=== PATIENT | female | born 1975 | race Caucasian/White ===

== ENCOUNTER 2019-10-12 23:05 | Emergency (ER) | payer OTHER ==
[~2019-10-12] VITALS: Ht 162.6 cm; Wt 78.5 kg
--- NOTE | 2019-10-12 23:23 | NUR ---
PT PRESENTED TO THE ER WITH A C/O PAIN WITH URINATION. URINE SAMPLE OBTAINED. PT AMBULATED TO ER 16.
--- NOTE | 2019-10-12 23:29 | NUR ---
PT IS SLOVEN[place] SPEAKING ONLY. PT STATED THAT THE PAIN WITH URINATION STARTED TODAY. PT STATED THAT SHE NOTICED A LITTLE BLOOD IN HER URINE. PT HAS HAD "VAGINAL INFECTIONS IN THE PAST, BUT THIS IS DIFFERENT". PT STATED THAT SHE HAS BEEN EXPERIENCING PAIN S/P URINATION.
[2019-10-12 23:49] LABS: APPEARANCE,URINE Slightly Cloudy (CLEAR); BILIRUBIN,URINE Negative (NEGATIVE); BLOOD, URINE Large Ery/uL (NEGATIVE); COLOR,URINE Yellow (YELLOW); KETONES,URINE Negative (NEGATIVE); LEUKOCYTE ESTERASE ,URINE Large (NEGATIVE); NITRITE, URINE Positive (NEGATIVE); PH,URINE 8.5 (5.0-8.0); PROTEIN,URINE 100 mg/dl (NEGATIVE); UGLUCOSE Negative (NEGATIVE); UROBILINOGEN,URINE 0.2 EU/dL (0.2)
[2019-10-13] MEDS ORDERED: CEFTRIAXONE 1 G VIAL IM ONE (00:30)
[2019-10-13] MEDS ORDERED: LIDOCAINE /MPF 1% VIAL 5 ML VIAL ONE (00:30)
[2019-10-13] MEDS ORDERED: KETOROLAC TROMETHAMINE INJ 60 MG/2 ML VIAL IM ONE ×2 (00:30)
[2019-10-13] MEDS ORDERED: CEFTRIAXONE 1 G VIAL ONE (00:31)
[2019-10-13 00:35] LABS: BACTERIA,URINE Few /HPF (None Seen); RBC,URINE TOO NUMEROUS TO COUN /HPF (0-2); SQUAMOUS EPITHELIAL CELL,UR Few /HPF (None Seen); WBC,URINE TOO NUMEROUS TO COUN /HPF (0-3)
--- NOTE | 2019-10-13 00:37 | NUR ---
PT AMBULATED TO THE BATHROOM WITH A STEADY GAIT. PT TO REC'D MEDICATION WHEN SHE RETURNS.
--- NOTE | 2019-10-13 00:56 | NUR ---
Patient discharged to home in stable condition. Written and verbal after care instructions given. Patient verbalizes understanding of instruction AND RX. PT AMBULATED OUT WITH A STEADY GAIT. VSS. NAD NOTED. SHELLIE BISWAS AT THE BEDSIDE FOR TRANSLATION
[2019-10-13 00:58] VITALS: BP 110/72
== END 2019-10-13 00:58 | disposition home or self-care (01) ==
LOC: ER 23:05
DX: N39.0 Urinary tract infection, site not specified (principal); I10 Essential (primary) hypertension; F41.9 Anxiety disorder, unspecified; Z88.5 Allergy status to narcotic agent
CPT/HCPCS: 81001; 84703; 87077; 87086; 87186; 96372 ×2; 99284; J0696; J1885; J3490; 81000-TC

== ENCOUNTER 2022-03-15 13:59 | Emergency (ER) | payer OTHER ==
[~2022-03-15] VITALS: Ht 162.6 cm; Wt 81.6 kg
--- NOTE | 2022-03-15 14:17 | NUR ---
TO ER BED 1. DC C/O HEADACHE AND LEFT EAR PAIN P/S 05/19 X5DAYS. AWAITING MD LOPEZ.
[2022-03-15] MEDS ORDERED: diphenhydrAMINE HCL 50 MG/ML VIAL ONE (14:59)
[2022-03-15] MEDS ORDERED: METOCLOPRAMIDE HCL 10 MG/2 ML VIAL ONE (14:59)
[2022-03-15] MEDS ORDERED: KETOROLAC TROMETHAMINE 15 MG/ML VIAL ONE (14:59)
[2022-03-15] MEDS ORDERED: diphenhydrAMINE HCL 50 MG/ML VIAL IV ONE (15:00)
[2022-03-15] MEDS ORDERED: KETOROLAC TROMETHAMINE INJ 30 MG/ML VIAL IV ONE (15:00)
[2022-03-15] MEDS ORDERED: METOCLOPRAMIDE HCL 10 MG/2 ML VIAL IV ONE (15:00)
[2022-03-15] MEDS ORDERED: IV NS 0.9% 1,000 ML BAG IV ONE (15:00)
[2022-03-15] MEDS ORDERED: IBUP-1955 PO (15:50)
--- NOTE | 2022-03-15 15:56 | NUR ---
IV removed. Catheter intact and site benign. Pressure and 4x4 applied to site. No bleeding noted.Patient discharged to home in stable condition. Written and verbal after care instructions given. Patient verbalizes understanding of instruction.
[2022-03-15 15:57] VITALS: BP 141/100
== END 2022-03-15 15:57 | disposition home or self-care (01) ==
LOC: ER 14:05
DX: R51.9 Headache, unspecified (principal); I10 Essential (primary) hypertension; F41.9 Anxiety disorder, unspecified; Z88.8 Allergy status to other drugs, medicaments and biological substances
CPT/HCPCS: 99284; 96374; 96375; 96361; J1200; J2765; J7030; J1885

== ENCOUNTER 2023-12-20 13:23 | Emergency (ER) | payer OTHER ==
[~2023-12-20] VITALS: Ht 162.6 cm; Wt 83.9 kg
[~2023-12-20 13:23] MED LIST: IBUP-1955 PO
[2023-12-20 14:39] LABS: CREATININE 0.7 mg/dL (0.6-1.3); POTASSIUM 3.6 mmol/L (3.5-5.1)
[2023-12-20 15:41] LABS: BASOPHILS % (AUTO) 0.7 % (0.0-2.0); EOSINOPHILS # (AUTO) 0.2 K/uL (0.0-0.7); EOSINOPHILS % (AUTO) 3.2 % (0.0-6.0); HEMATOCRIT 38 % (33-45); HEMOGLOBIN 12.2 g/dL (11.5-14.8); LYMPHOCYTES # (AUTO) 2.4 K/uL (0.8-4.8); LYMPHOCYTES % (AUTO) 33.7 % (20.0-44.0); MEAN CORPUSCULAR HEMOGLOBIN 26 PG (26.0-33.0); MEAN CORPUSCULAR HGB CONC 32 g/dl (31.0-36.0); MEAN CORPUSCULAR VOLUME 79 fL (82-100); MONOCYTES # (AUTO) 0.5 K/uL (0.1-1.30); MONOCYTES % (AUTO) 6.8 % (2.0-12.0); NEUTROPHILS # (AUTO) 3.9 K/uL (1.8-8.9); NEUTROPHILS % (AUTO) 55.6 % (43.0-81.0); PLATELET COUNT (AUTO) 242 K/uL (150-450); RED BLOOD CELL COUNT(AUTO) 4.78 MIL/uL (4.0-5.2); RED CELL DISTRIBUTION WIDTH 15.4 % (11.5-15.0)
[2023-12-20 16:06] LABS: PREGNANCY TEST URINE QUAL NEGATIVE (NEGATIVE)
[2023-12-20] MEDS ORDERED: MECL-159 PO (16:43)
[2023-12-20 16:49] VITALS: BP 135/96; TEMP 98.5; O2SAT 100
== END 2023-12-20 16:49 | disposition home or self-care (01) ==
LOC: ER 13:23
DX: G43.909 Migraine, unspecified, not intractable, without status migrainosus (principal); R42 Dizziness and giddiness; I10 Essential (primary) hypertension; R10.2 Pelvic and perineal pain; F41.9 Anxiety disorder, unspecified; Z79.899 Other long term (current) drug therapy; Z88.5 Allergy status to narcotic agent
CPT/HCPCS: 36415; 70450-TC; 80048-TC; 84703-TC; 85025-TC